=== PATIENT | male | born 1990 | race African-American/Black ===

== ENCOUNTER 2018-07-13 10:41 | Emergency (ER) | payer SELFPAY ==
[2018-07-13 10:47] VITALS: BMI 36.9
[2018-07-13] MEDS ORDERED: morphine CARPU-JECT 2 MG/1 ML DISP.SYRIN IVPUSH ONE (11:23)
[2018-07-13] MEDS ORDERED: SODIUM CHLORIDE 1,000 ML IV STA (11:23)
[2018-07-13] MEDS ORDERED: DIPHTH,PERTUSS(ACELL),TET 0.5 ML DISP.SYRIN IM ONE ×2 (11:24→15:44)
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
[2018-07-13] MEDS ORDERED: morphine SULFATE 4 MG/ML VIAL ONE (12:16)
[2018-07-13] MEDS ORDERED: ONDANSETRON 4 MG/2 ML VIAL ONE (12:20)
[2018-07-13] MEDS ORDERED: TETRACAINE 0.5% OPHTH SOLN 2 ML BOTTLE ONE ×2 (15:12→15:43)
[2018-07-13] MEDS ORDERED: FLUORESCEIN NA 1 EA STRIP ONE (15:12)
[2018-07-13 16:19] VITALS: BP 124/68; PULSE 80; TEMP 97.8
== END 2018-07-13 16:05 | disposition home or self-care (01) ==
LOC: JER 10:41
PROC: 3E0234Z Introduction of Serum, Toxoid and Vaccine into Muscle, Percutaneous Approach (ICD-10-PCS; principal; 2018-07-13)
PROC: 3E033NZ Introduction of Analgesics, Hypnotics, Sedatives into Peripheral Vein, Percutaneous Approach (ICD-10-PCS; 2018-07-13)
DX: S02.2XXA Fracture of nasal bones, initial encounter for closed fracture (principal); S01.21XA Laceration without foreign body of nose, initial encounter; S05.01XA Injury of conjunctiva and corneal abrasion without foreign body, right eye, initial encounter; Y04.2XXA Assault by strike against or bumped into by another person, initial encounter; Y93.89 Activity, other specified; Y92.512 Supermarket, store or market as the place of occurrence of the external cause; Y99.8 Other external cause status; Y07.6 Multiple perpetrators of maltreatment and neglect
CPT/HCPCS: 70450-TC; 70486-TC; 72125-TC; 73140-TC-LT-FY; 73140-TC-RT-FY; 90715; 99281-25